=== PATIENT | male | born 1970 | race Two or more races ===

== ENCOUNTER 2020-04-07 10:43 | Inpatient (IN) | payer OTHER ==
[~2020-04-07] VITALS: Ht 185.4 cm; Wt 120.2 kg
[2020-04-07] MEDS ORDERED: COZAAR25 MG PO (15:56)
[2020-04-07] MEDS ORDERED: TOPROL XL100 M1 PO (15:56)
[2020-04-13] MEDS ORDERED: BISACODYL5 MG (08:17)
[2020-04-15] MEDS ORDERED: PRILOSEC OTC20 MG PO (08:42)
[2020-04-15] MEDS ORDERED: PERCOCET 5-3251 EACH PO (08:42)
== END 2020-04-15 18:58 | disposition home or self-care (01) | DRG 331 ==
LOC: SURH 04-12 12:30 → O/R 04-13 05:50 → SURH 04-13 05:50
PROVIDERS: ADMIT Surgery; ATTEND Surgery
PROC: 0DJD8ZZ Inspection of Lower Intestinal Tract, Via Natural or Artificial Opening Endoscopic (ICD-10-PCS; 2020-04-13)
PROC: 4A12X4Z Monitoring of Cardiac Electrical Activity, External Approach (ICD-10-PCS; 2020-04-13)
PROC: 4A033R1 Measurement of Arterial Saturation, Peripheral, Percutaneous Approach (ICD-10-PCS; 2020-04-13)
PROC: 0DTN4ZZ Resection of Sigmoid Colon, Percutaneous Endoscopic Approach (ICD-10-PCS; principal; 2020-04-13 10:45)
DX: K57.32 Diverticulitis of large intestine without perforation or abscess without bleeding (principal); Z20.828 Contact with and (suspected) exposure to other viral communicable diseases; I11.9 Hypertensive heart disease without heart failure; G47.33 Obstructive sleep apnea (adult) (pediatric)